=== PATIENT | female | born 1950 | race African-American/Black ===

== ENCOUNTER 2022-10-27 19:26 | Emergency (ER) | payer MEDICARE, OTHER ==
[~2022-10-27] VITALS: Ht 165.1 cm; Wt 82.0 kg
[2022-10-27] MEDS ORDERED: KETOROLAC 60MG/2ML VIAL IM ONE (21:00)
[2022-10-27] MEDS ORDERED: MELO-105 MT (21:03)
[2022-10-28] MEDS ORDERED: KETOROLAC 60MG/2ML VIAL IM NR (02:00)
[2022-10-28 11:07] VITALS: BP 111/64
== END 2022-10-28 11:10 | disposition home or self-care (01) ==
LOC: ER 19:26
DX: M17.11 Unilateral primary osteoarthritis, right knee (principal); I10 Essential (primary) hypertension; Z88.6 Allergy status to analgesic agent; Z86.73 Personal history of transient ischemic attack (TIA), and cerebral infarction without residual deficits; Z91.013 Allergy to seafood
CPT/HCPCS: 73560; 96372; 99283; J1885